=== PATIENT | male | born 1940 | race Caucasian/White ===

== ENCOUNTER 2018-07-22 18:08 | Inpatient (IN) ==
[2018-07-22] MEDS ORDERED: Temazepam 15 MG Capsule PO PRN (20:29)
[2018-07-22] MEDS ORDERED: Acetaminophen 325 MG Tablet PO PRN (20:30)
[2018-07-22] MEDS ORDERED: Aluminum/Magnesium/Simethacone Susp 30 ML UDC PO PRN (20:30)
[2018-07-22] MEDS ORDERED: Acetaminophen/Codeine 300/30 MG Tablet PO PRN (20:30)
[2018-07-22] MEDS ORDERED: Bisacodyl 10 MG Supp RECTAL PRN (20:48)
--- NOTE | 2018-07-22 21:33 | XR ---
EXAM DATE: 07/22/2018 12:00 AM EDT AGE/SEX: 78 years / Male INDICATIONS: Shortness of breath. CLINICAL DATA: This is the patient's initial encounter. Patient reports that signs and symptoms have been present for 1 day and indicates a pain score of 0/10. MEDICAL/SURGICAL HISTORY: Congestive heart failure. Asthma. Hypertension. . Cardiac stents. COMPARISON: POI, XR CHEST PA AND LAT, 06/23/2018. . FINDINGS: Heart size enlarged. Minimal basilar atelectasis and trace pleural effusions, decreased from Septembe r 20. No pneumothorax. Mild basilar atelectasis. CONCLUSION: Cardiomegaly with trace pleural effusions and basilar atelectasis. Remote left clavicle fracture. Electronically signed by: Latrell Buitrago MD 07/22/2018 9:32 PM EDT
[2018-07-22 21:51] LABS: Baso # (Auto) 0.1 th/mm3 (0.0-0.2); Baso % (Auto) 0.8 % (0.0-2.0); Eos # (Auto) 0.2 th/mm3 (0.0-0.4); Eos % (Auto) 2.5 % (0.0-4.0); Hematocrit 41.4 % (39.0-51.0); Hemoglobin 13.4 gm/dL (13.0-17.0); Lymph # (Auto) 2.3 th/mm3 (1.0-4.8); Lymph % (Auto) 23.6 % (9.0-44.0); Mean Corpuscular HGB Conc 32.4 % (32.0-36.0); Mean Corpuscular Hemoglobin 30.1 pg (27.0-34.0); Mean Platelet Volume 9.6 fL (7.0-11.0); Mono # (Auto) 0.6 th/mm3 (0.0-0.9); Mono % (Auto) 5.8 % (0.0-8.0); Neut # (Auto) 6.5 th/mm3 (1.8-7.7); Neut % (Auto) 67.3 % (16.0-70.0); Platelet Count 204 th/mm3 (150-450); Red Blood Count 4.45 mil/mm3 (4.50-5.90); Red Cell Distribution Width 14.5 % (11.6-17.2); White Blood Count 9.7 th/mm3 (4.0-11.0)
[2018-07-22 22:00] LABS: INR 1.5 Ratio; Prothrombin Time 14.9 sec (9.8-11.6)
[2018-07-22 22:14] LABS: Alanine Aminotransferase 53 U/L (12-78); Albumin 4.1 g/dL (3.4-5.0); Anion Gap 8 meq/L (5-15); Aspartate Aminotransferase 28 U/L (15-37); Blood Urea Nitrogen 36 mg/dL (7-18); Calcium 9.1 mg/dL (8.5-10.1); Carbon Dioxide 24.5 meq/L (21.0-32.0); Chloride 108 meq/L (98-107); Glomerular Filtration Rate 48 mL/min (>89); Glucose,Random 94 mg/dL (74-106); Potassium 4.4 meq/L (3.5-5.1); Sodium 140 meq/L (136-145)
[2018-07-22 22:17] LABS: Alkaline Phosphatase 79 U/L (45-117); Total Protein 8.1 g/dL (6.4-8.2)
--- NOTE | 2018-07-22 23:27 | P.HPIM ---
History of Present Illness Service: [facility] Primary Care Physician: German Rosas MD, R3 Chief Complaint: Shortness of breath History of Present Illness: Mr. Maradiaga is a very pleasant 78-year-old male who presents as a direct admission from Dr. Prasad, his market maker, for further evaluation and management of congestive heart failure and atrial flutter. The patient is admitted to the hospitalist service (discussed with Dr. Deal - on-call resident as he is on the family practice resident's service - they are unable to be attending for direct admissions). The patient is seen in his hospital room. He reports that symptoms started June 21 and he was seen by Dr. Rosas his primary care physician. He was referred to Dr. Prasad for new onset of congestive heart failure. The patient reports having medications adjusted by the market maker. He states he started having shortness of breath with ambulation and exertion starting about a week ago. Symptoms are relieved with rest. He denies any chest pain, palpitations, diaphoresis or nausea and/or vomiting. He denies any recent illness and reports that he is usually in good health and actually exercises at least 3 times a week normally but has been instructed not to do so by the market maker. Inpatient Certification: I certify that the inpatient services were ordered in accordance with Medicare regulations governing the order. This includes certification that hospital inpatient services are reasonable and necessary and in the case of services not specified as inpatient-only under 42 CFR 419.22(n), that they are appropriately provided as inpatient services in accordance to with the 2-midnight benchmark under 43 CFR 412.3(e) Estimated Total Length of Stay (Days): 3 Plans for Post Hospital Care: Not yet determined Review of Systems All other systems reviewed negative except as stated in HPI PMFSH - History History Provided By: Patient - Medical History Medical History: Medical History (Last Updated 07/22/18 @ 22:00 by TUSHAR Caceres) Coronary artery disease History of cervical fracture Hypertension - Surgical History Surgical History: Surgical History (Last Updated 07/22/18 @ 22:00 by TUSHAR Caceres) History of heart artery stent History of left knee surgery Status post cervical spinal fusion - Family History Family History: Family History (Last Updated 07/23/18 @ 01:49 by TUSHAR Caceres) Father Heart disease Brother Heart disease Daughter Multiple sclerosis - Social History I have reviewed the patient's Social History: Yes - Tobacco History Second Hand Smoke Exposure: Yes Smoking Status: Never smoker - Alcohol History How Often Do You Have a Drink Containing Alcohol: Monthly or less - Substance Use History Substance History: No History of Abuse - Immunization History Tetanus Immunization: <5 Years Hx Influenza Vaccine This Season: Yes Medications and Allergies Active Medications: Active Medications Acetaminophen (Tylenol) 650 mg PO Q4H PRN PRN Reason: PAIN 1-3 Acetaminophen/Codeine Phosphate (Tylenol W/Cod #3) 2 tab PO Q4H PRN PRN Reason: MODERATE PAIN 4-5 Al Hydrox/Mg Hydrox/Simethicone (Mag-Al Plus Susp Liq) 30 ml PO Q2H PRN PRN Reason: INDIGESTION Al Hydroxide/Mg Hydroxide (Milk Of Magnesia Liq) 30 ml PO Q2H PRN PRN Reason: CONSTIPATION Aspirin (Aspirin Chew) 81 mg PO DAILY TEENA Bisacodyl (Dulcolax Supp) 10 mg RECTAL DAILY PRN PRN Reason: SEVERE CONSITIPATION Furosemide (Lasix Inj) 20 mg IV.PUSH Q12H TEENA Lisinopril (Prinivil) 10 mg PO DAILY TEENA Metoprolol Succinate (Toprol Xl) 50 mg PO DAILY TEENA Pravastatin Sodium (Pravachol) 20 mg PO HS REPLACED BY [facility] Last Admin: 07/22/18 20:41 Dose: Not Given Rivaroxaban (Xarelto) 20 mg PO DAILY@1800 TEENA Temazepam (Restoril) 15 mg PO HS PRN PRN Reason: SLEEP Allergies Allergy/AdvReac Type Severity Reaction Status Date / Time No Known Allergies Allergy Mild Uncoded 07/19/12 13:48 Exam Vital signs: Vital Signs 07/22/18 22:00 Temperature 97.1 F L Pulse Rate 102 H Respiratory Rate 20 Blood Pressure 119/83 Pulse Oximetry 97 Narrative: GENERAL: This is a pleasant elderly male patient, in no apparent distress. SKIN: No rashes or lesions. Cool and dry. HEAD: Atraumatic. Normocephalic. EYES: No scleral icterus. No injection or drainage. ENT: Nose without bleeding, purulent drainage. NECK: Trachea midline. No JVD. CARDIOVASCULAR: Regular rate and rhythm without murmurs, gallops, or rubs. Trace ankle edema noted bilaterally. RESPIRATORY: Left upper lobe with faint scattered crackles, otherwise CTA. Respirations are even and unlabored at rest. GASTROINTESTINAL: Abdomen soft, non-tender, nondistended. No guarding. MUSCULOSKELETAL: Extremities without clubbing, cyanosis, or edema. No calf tenderness. NEUROLOGICAL: Awake and alert. Motor and sensory grossly within normal limits. Normal speech. . Results - Labs CBC & Chem 7: 07/22/18 21:38 07/22/18 21:38 Labs: Short CBC 07/22/18 Range/Units 21:38 WBC 9.7 (4.0-11.0) th/mm3 Hgb 13.4 (13.0-17.0) gm/dL Hct 41.4 (39.0-51.0) % Plt Count 204 (150-450) th/mm3 BMP 07/22/18 21:38 Sodium 140 Potassium 4.4 Chloride 108 H Carbon Dioxide 24.5 BUN 36 H Creatinine 1.41 H Calcium 9.1 Liver Function 07/22/18 Range/Units 21:38 Total Bilirubin 1.1 H (0.2-1.0) mg/dL AST 28 (15-37) U/L ALT 53 (12-78) U/L Alkaline Phosphatase 79 (45-117) U/L Albumin 4.1 (3.4-5.0) g/dL - Imaging Impressions Chest X-Ray 07/22/18 00:00 CONCLUSION: Cardiomegaly with trace pleural effusions and basilar atelectasis. Remote left clavicle fracture. Caprini VTE Risk Assessment Caprini VTE Risk Assessment: Moderate/High Risk (score >= 2) Caprini Risk Assessment Model: Point Value = 1 Point Value = 2 Point Value = 3 Point Value = 5 Age 41-60 Minor surgery BMI > 25 kg/m2 Swollen legs Varicose veins or History of unexplained or recurrent spontaneous Oral contraceptives or hormone replacement Sepsis (< 1 month) Serious lung disease, including pneumonia (< 1 month) Abnormal pulmonary function Acute myocardial infarction Congestive heart failure (< 1 month) History of inflammatory bowel disease Medical patient at bed rest Age 61-74 Arthroscopic surgery Major open surgery (> 45 min) Laparoscopic surgery (> 45 min) Malignancy Confined to bed (> 72 hours) Immobilizing plaster cast Central venous access Age >= 75 History of VTE Family history of VTE Factor V Leiden Prothrombin [id number] Lupus anticoagulant Anticardiolipin antibodies Elevated serum homocysteine Heparin-induced thrombocytopenia Other congenital or acquired thrombophilia Stroke (< 1 month) Elective arthroplasty Hip, pelvis, or leg fracture Acute spinal cord injury (< 1 month) Prophylaxis Regimen: Total Risk Factor Score Risk Level Prophylaxis Regimen 0-1 Low Early ambulation 2 Moderate Order ONE of the following: *Sequential Compression Device (SCD) *Heparin 5000 units SQ BID 3-4 Higher Order ONE of the following medications: *Heparin 5000 units SQ TID *Enoxaparin/Lovenox 40 mg SQ daily (WT < 150 kg, CrCl > 30 mL/min) *Enoxaparin/Lovenox 30 mg SQ daily (WT < 150 kg, CrCl > 10-29 mL/min) *Enoxaparin/Lovenox 30 mg SQ BID (WT < 150 kg, CrCl > 30 mL/min) AND/OR *Sequential Compression Device (SCD) 5 or more Highest Order ONE of the following medications: *Heparin 5000 units SQ TID (Preferred with Epidurals) *Enoxaparin/Lovenox 40 mg SQ daily (WT < 150 kg, CrCl > 30 mL/min) *Enoxaparin/Lovenox 30 mg SQ daily (WT < 150 kg, CrCl > 10-29 mL/min) *Enoxaparin/Lovenox 30 mg SQ BID (WT < 150 kg, CrCl > 30 mL/min) AND *Sequential Compression Device (SCD) Assessment and Plan - Plan Mr. Maradiaga is a very pleasant 78-year-old male who presents as a direct admission from Dr. Prasad, his market maker, for further evaluation and management of congestive heart failure and atrial flutter. The patient is admitted to the hospitalist service. CHF -BUN 1404, CXR with trace bilateral pleural effusions -Lasix 20 mg IV BID -monitor I&Os -Fluid restriction 1000 cc/day -cardiology consulted - Dr. Prasad's assistance is appreciated SOB with exertion - likely secondary to CHF -will check serial troponins and EKGs to r/o acs Atrial flutter 2:1 -continuous cardiac telemetry to monitor rate and rhythm -continue home Xarelto and Metoprolol -treat RVR if sustained > 120 bpm Acute renal insufficiency -BUN 36, creatinine 1.41, and eGFR 48 -most recent labs for comparison were 2006 (kidney function was fine at that time) -avoid nephrotoxins -monitor renal function DVT prophylaxis -Xarelto as above Of note discussed with Dr. Deal - on-call resident as he is on the family practice resident's service (Dr. Rosas) - they are unable to be attending for direct admissions . Discussed Condition With: Patient, RN, and Dr. Armstrong H&P: Quality - VTE Deep Vein Thrombosis/Pulmonary Embolism Present on Admission: No
[2018-07-23 04:14] LABS: Bacteria,Urine Rare /hpf; Bilirubin,Urine Negative (Negative); Clarity,Urine Clear (Clear); Color,Urine Yellow (Yellw/Straw); Glucose,Urine (UA) Negative (Negative); Leukocyte Esterase,Urine Negative (Negative); Mucus,Urine Few /lpf (Occasional); Nitrite,Urine Negative (Negative); Specific Gravity,Urine 1.012 (1.002-1.035); Squamous Epithelial Cell,Urine 2 /hpf (0-5)
[2018-07-23 04:20] LABS: Troponin I 0.03 ng/mL (0.02-0.05)
[2018-07-23] MEDS: Lisinopril 10 MG Tablet PO SCH (08:56)
[2018-07-23] MEDS ORDERED: Influenza (Quadrivalent) Vaccine 0.5 ML Syringe IM ONE (09:00)
[2018-07-23 11:41] LABS: Troponin I 0.03 ng/mL (0.02-0.05)
--- NOTE | 2018-07-23 15:15 | P.PN ---
Subjective Interval history: Patient reports feeling well Good urine outpatient after IV lasix reports BLE edema improved denies SOB at this time Physical Exam Vital signs: Vital Signs 07/22/18 21:35 07/22/18 22:00 07/23/18 00:00 Temperature 97.1 F L 97.2 F L Pulse Rate 110 H 102 H 112 H Respiratory Rate 20 20 Blood Pressure 119/83 125/95 H Pulse Oximetry 97 94 L 07/23/18 04:00 07/23/18 08:00 07/23/18 12:00 Temperature 97.2 F L Pulse Rate 111 H 114 H 113 H Respiratory Rate 20 Blood Pressure 130/69 Pulse Oximetry 92 L Intake & Output 07/22/18 07/23/18 07/23/18 18:59 06:59 18:59 Weight 91 kg Other: Date of Last Bowel Movement 07/22/18 07/22/18 Weight On Admission 91 kg Narrative: GENERAL: This is a well-nourished, well-developed patient, in no apparent distress. CARDIOVASCULAR: irregularly irregular RESPIRATORY: Clear to auscultation. Breath sounds equal bilaterally. GASTROINTESTINAL: Abdomen soft, non-tender, nondistended. Normal active bowel sounds MUSCULOSKELETAL: Extremities without clubbing, cyanosis. trace BLE edema NEURO: Alert & Oriented x4 to person, place, time, situation. Moves all ext x4 . Results - Labs CBC & Chem 7: 07/22/18 21:38 07/22/18 21:38 Laboratory Results - last 24 hr 07/22/18 07/22/18 07/22/18 21:38 21:38 21:38 WBC 9.7 RBC 4.45 L Hgb 13.4 Hct 41.4 MCV 93.0 MCH 30.1 MCHC 32.4 RDW 14.5 Plt Count 204 MPV 9.6 Neut % (Auto) 67.3 Lymph % (Auto) 23.6 [place] % (Auto) 5.8 Eos % (Auto) 2.5 Baso % (Auto) 0.8 Neut # (Auto) 6.5 Lymph # (Auto) 2.3 [place] # (Auto) 0.6 Eos # (Auto) 0.2 Baso # (Auto) 0.1 WBC Differential . Differential Comment Auto diff final PT 14.9 H INR 1.5 Sodium 140 Potassium 4.4 Chloride 108 H Carbon Dioxide 24.5 Anion Gap 8 BUN 36 H Creatinine 1.41 H Estimated GFR 48 L Random Glucose 94 Calcium 9.1 Total Bilirubin 1.1 H AST 28 ALT 53 Alkaline Phosphatase 79 Total Creatine Kinase Troponin I B-Natriuretic Peptide Total Protein 8.1 Albumin 4.1 Urine Color Urine Clarity Urine pH Ur Specific [place] Urine Protein Urine Glucose (UA) Urine Ketones Urine Occult Blood Urine Nitrate Urine Bilirubin Urine Urobilinogen Ur Leukocyte Esterase Urine RBC Urine WBC Ur Squamous Epith Cells Urine Bacteria Urine Mucus Micro UA Comment Ur Microscopic Review Urine Culture Comments 07/22/18 07/23/18 07/23/18 21:38 03:30 03:43 WBC RBC Hgb Hct MCV MCH MCHC RDW Plt Count MPV Neut % (Auto) Lymph % (Auto) [place] % (Auto) Eos % (Auto) Baso % (Auto) Neut # (Auto) Lymph # (Auto) [place] # (Auto) Eos # (Auto) Baso # (Auto) WBC Differential Differential Comment PT INR Sodium Potassium Chloride Carbon Dioxide Anion Gap BUN Creatinine Estimated GFR Random Glucose Calcium Total Bilirubin AST ALT Alkaline Phosphatase Total Creatine Kinase 136 Troponin I 0.03 B-Natriuretic Peptide 1404 H Total Protein Albumin Urine Color Yellow Urine Clarity Clear Urine pH 5.0 Ur Specific [place] 1.012 Urine Protein 30 H Urine Glucose (UA) Negative Urine Ketones Negative Urine Occult Blood Small H Urine Nitrate Negative Urine Bilirubin Negative Urine Urobilinogen Less than 2 Ur Leukocyte Esterase Negative Urine RBC 1 Urine WBC 1 Ur Squamous Epith Cells 2 Urine Bacteria Rare H Urine Mucus Few H Micro UA Comment Culture not ind Ur Microscopic Review Not Reportable Urine Culture Comments Culture not ind 07/23/18 10:00 WBC RBC Hgb Hct MCV MCH MCHC RDW Plt Count MPV Neut % (Auto) Lymph % (Auto) [place] % (Auto) Eos % (Auto) Baso % (Auto) Neut # (Auto) Lymph # (Auto) [place] # (Auto) Eos # (Auto) Baso # (Auto) WBC Differential Differential Comment PT INR Sodium Potassium Chloride Carbon Dioxide Anion Gap BUN Creatinine Estimated GFR Random Glucose Calcium Total Bilirubin AST ALT Alkaline Phosphatase Total Creatine Kinase 155 Troponin I 0.03 B-Natriuretic Peptide Total Protein Albumin Urine Color Urine Clarity Urine pH Ur Specific [place] Urine Protein Urine Glucose (UA) Urine Ketones Urine Occult Blood Urine Nitrate Urine Bilirubin Urine Urobilinogen Ur Leukocyte Esterase Urine RBC Urine WBC Ur Squamous Epith Cells Urine Bacteria Urine Mucus Micro UA Comment Ur Microscopic Review Urine Culture Comments - Imaging Impressions Chest X-Ray 07/22/18 00:00 CONCLUSION: Cardiomegaly with trace pleural effusions and basilar atelectasis. Remote left clavicle fracture. Assessment and Plan - Plan Mr. Maradiaga is a very pleasant 78-year-old male who presents as a direct admission from Dr. Prasad, his swine genetics researcher, for further evaluation and management of congestive heart failure and atrial flutter. The patient is admitted to the hospitalist service. CHF -BUN 1404, CXR with trace bilateral pleural effusions -Continue Lasix 20 mg IV BID -monitor I&Os -Fluid restriction 1000 cc/day -cardiology consulted - assistance is appreciated awaiting further recommendations SOB with exertion - likely secondary to CHF -will check serial 0.03 x 2 Atrial flutter -continuous cardiac telemetry to monitor rate and rhythm -continue home Xarelto and Metoprolol -treat RVR if sustained > 120 bpm Acute renal insufficiency -BUN 36, creatinine 1.41, and eGFR 48 -most recent labs for comparison were 2006 (kidney function was fine at that time) -avoid nephrotoxins -repeat BMP in AM DVT prophylaxis -Xarelto as above Discussed Condition With: Patient, RN, and supervising physician Dr. Nuñez
--- NOTE | 2018-07-23 18:08 | MB ---
cc: Aric Marks MD DATE: 07/23/2018 HISTORY OF PRESENT ILLNESS: Mr. Maradiaga is an 78-year-old white male patient of [facility], with a history of recent onset atrial flutter and congestive heart failure. He was seen 1 week ago and was started on Xarelto, spironolactone, increased dose of metoprolol. He was seen yesterday in Dr. Prasad's office with increased shortness of breath and fatigue. He has not had any chest pain. Has increased lower extremity edema. His echocardiogram yesterday showed ejection fraction of 10% to 15%. Last echocardiogram in 03/2018 showed ejection fraction of 52%. PAST MEDICAL HISTORY: Positive for coronary artery disease, coronary stenting mid circumflex, myocardial infarction, congestive heart failure, new onset atrial flutter, cardiomyopathy, congestive heart failure, moderate aortic stenosis, carotid stenosis, dyslipidemia, hypertension. MEDICATIONS: Include: 1. Xarelto. 2. Baby aspirin. 3. Furosemide. 4. Spironolactone. 5. Lisinopril. 6. Toprol-XL. 7. Pravastatin. 8. Multivitamin. ALLERGIES: NONE. SOCIAL HISTORY: The patient does not smoke. He drinks alcohol occasionally. FAMILY HISTORY: Positive for heart disease in his father and his brother. REVIEW OF SYSTEMS: Otherwise negative. PHYSICAL EXAMINATION: VITAL SIGNS: Blood pressure 130/69, pulse 113 and regular. HEENT: Negative 2+ carotid upstrokes, no bruits. LUNGS: Decreased breath sounds and a few bibasilar crackles. HEART: Regular, tachycardic with a 2/6 systolic murmur. No gallop. ABDOMEN: Soft. EXTREMITIES: With 1+ edema, 1+ distal pulses. NEUROLOGIC: Grossly nonfocal. LABORATORY DATA: EKG was reviewed and showed an atrial flutter/tachycardia with increased ventricular response, left axis, nonspecific ST-T changes. LABORATORY DATA: Hemoglobin 13.4, potassium 4.4, creatinine 1.4. Troponin 0.03 x2. AST and ALT normal. BNP 1404. DIAGNOSES: 1. Acute congestive heart failure. 2. Atrial flutter/tachycardia with rapid ventricular response. 3. Cardiomyopathy with severe left ventricular systolic dysfunction. 4. Renal insufficiency. 5. Coronary artery disease, h/o myocardial infarction and coronary stenting. 6. Aortic stenosis. 7. Hypertension. DISPOSITION: Mr. Maradiaga will continue his current medical program including diuresis. We will closely monitor his renal function. We will increase metoprolol for better rate control. We will continue anticoagulation with Xarelto. 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 Dr. Prasad, his primary inhalation therapy aides teacher, will take over his care on Wednesday. Aric Marks MD OQ/ct , 03:20 PM , 03:30 PM DAVE
[2018-07-23] MEDS: Rivaroxaban 20 MG Tablet PO SCH (18:15)
--- NOTE | 2018-07-23 19:41 | ECG ---
Date Performed: 07/23/2018 Time Performed: 09:16:07 PTAGE: 78 years EKG: ATRIAL TACHYCARDIA WITH RAPID VENTRICULAR RESPONSE WITH VENTRICULAR PREMATURE COMPLEX MARKE D LEFT AXIS DEVIATION INTRAVENTRICULAR CONDUCTION DELAY ABNORMAL ECG PREVIOUS TRACING : 07/23/2018 06.06 Since the previous tracing, no significant change noted DOCTOR: Aric Marks Interpretating Date/Time 07/23/2018 19:40:59
--- NOTE | 2018-07-23 19:53 | ECG ---
Date Performed: 07/23/2018 Time Performed: 06:06:48 PTAGE: 78 years EKG: Atrial tachycardia/flutter Leftward axis Lateral ST-T changes Abnormal ECG Since the PREVIOUS TRACING , no significant change noted DOCTOR: Aric Marks Interpretating Date/Time 07/23/2018 19:51:27
--- NOTE | 2018-07-23 20:01 | ECG ---
Date Performed: 07/23/2018 Time Performed: 03:21:30 PTAGE: 78 years EKG: Atrial flutter/tachycardia with PVC(s) Possible left anterior fascicular block Inferior/lat eral T wave changes are nonspecific Borderline ECG Since the PREVIOUS TRACING , no significant change noted DOCTOR: Aric Marks Interpretating Date/Time 07/23/2018 19:59:44
--- NOTE | 2018-07-23 20:11 | ECG ---
Date Performed: 07/22/2018 Time Performed: 21:11:43 PTAGE: 78 years EKG: ATRIAL FLUTTER/TACHYCARDIA WITH RAPID VENTRICULAR RESPONSE MARKED LEFT AXIS DEVIATION MODER ATE T-WAVE ABNORMALITY ABNORMAL ECG PREVIOUS TRACING : 07/29/2007 06.08 Compared to previous tracing, NSR no longer present DOCTOR: Aric Marks Interpretating Date/Time 07/23/2018 20:10:06
[2018-07-23] MEDS: Metoprolol Tartrate 50 MG Tablet PO SCH (22:18)
[2018-07-24] MEDS: Lisinopril 10 MG Tablet PO SCH (08:02)
[2018-07-24] MEDS: Metoprolol Tartrate 50 MG Tablet PO SCH (08:02)
[2018-07-24 09:00] LABS: Calcium 8.6 mg/dL (8.5-10.1); Carbon Dioxide 23.1 meq/L (21.0-32.0); Potassium 4.6 meq/L (3.5-5.1)
--- NOTE | 2018-07-24 09:28 | P.PNCA ---
Subjective Interval history: Patient denies any chest pain, pressure, palpitations, dizziness or shortness of breath. Patient states that he is slowly starting to feel better. Medications and Allergies Allergies Allergy/AdvReac Type Severity Reaction Status Date / Time No Known Allergies Allergy Mild Uncoded 07/19/12 13:48 Active Medications: Active Medications Acetaminophen (Tylenol) 650 mg PO Q4H PRN PRN Reason: PAIN 1-3 Acetaminophen/Codeine Phosphate (Tylenol W/Cod #3) 2 tab PO Q4H PRN PRN Reason: MODERATE PAIN 4-5 Al Hydrox/Mg Hydrox/Simethicone (Mag-Al Plus Susp Liq) 30 ml PO Q2H PRN PRN Reason: INDIGESTION Al Hydroxide/Mg Hydroxide (Milk Of Magnesia Liq) 30 ml PO Q2H PRN PRN Reason: CONSTIPATION Aspirin (Aspirin Chew) 81 mg PO DAILY [facility] Last Admin: 07/24/18 08:02 Dose: 81 mg Bisacodyl (Dulcolax Supp) 10 mg RECTAL DAILY PRN PRN Reason: SEVERE CONSITIPATION Furosemide (Lasix Inj) 20 mg IV.PUSH Q12H [facility] Last Admin: 07/24/18 06:14 Dose: 20 mg Lisinopril (Prinivil) 10 mg PO DAILY [facility] Last Admin: 07/24/18 08:02 Dose: 10 mg Metoprolol Tartrate (Lopressor) 50 mg PO BID [facility] Last Admin: 07/24/18 08:02 Dose: 50 mg Pravastatin Sodium (Pravachol) 20 mg PO HS [facility] Last Admin: 07/23/18 22:18 Dose: 20 mg Rivaroxaban (Xarelto) 20 mg PO DAILY@1800 [facility] Last Admin: 07/23/18 18:15 Dose: 20 mg Temazepam (Restoril) 15 mg PO HS PRN PRN Reason: SLEEP Physical Exam Vital signs: Vital Signs 07/23/18 12:00 07/23/18 16:00 07/23/18 20:00 Temperature 97.5 F L 97.3 F L 97.2 F L Pulse Rate 114 H 115 H 115 H Respiratory Rate 20 20 20 Blood Pressure 111/75 108/79 94/74 L Pulse Oximetry 97 97 95 07/24/18 00:00 07/24/18 04:00 07/24/18 08:00 Temperature 97.5 F L 97.5 F L Pulse Rate 112 H 108 H 110 H Respiratory Rate 18 18 Blood Pressure 115/93 H 109/77 Pulse Oximetry 99 97 Intake & Output 07/23/18 07/24/18 07/24/18 18:59 06:59 18:59 Intake Total 480 / 480 Output Total 3150 / 3150 2700 / 2700 Balance -2670 / -2670 -2700 / -2700 Weight 90.7 kg Intake: Oral 480 / 480 Output: Urine 3150 / 3150 2700 / 2700 Other: # Voids 1 Date of Last Bowel Movement 07/22/18 07/22/18 # Bowel Movements 1 - Constitutional no acute distress - Routine HEENT Exam Head: Present: normocephalic Eye: Present: PERRL ENT: Present: mucous membranes moist - Routine Neck Exam Present: full ROM - Routine Respiratory Exam Present: crackles Comments: Crackles noted bilaterally lower lobes. - Routine Cardiovascular Exam Present: S1, S2, tachycardia, irregular rhythm - Routine Abdominal Exam Present: normoactive bowel sounds - Routine Extremities Exam Present: edema, full ROM, pulses intact, normal capillary refill. Absent: cyanosis, clubbing - Routine Skin Exam Present: intact - Routine Neurological Exam Present: oriented X3 - Detailed Neurological Exam: Coma Scale Eye Opening: Spontaneous Verbal Response: Oriented Motor Response: Obey commands Kalpesh Coma Scale Total: 15 - Routine Psychiatric Exam Present: normal affect Results 07/22/18 21:38 07/24/18 08:25 Cardiac Enzymes 07/22/18 07/22/18 07/23/18 Range/Units 21:38 21:38 03:43 AST 28 (15-37) U/L Troponin I 0.03 (0.02-0.05) ng/mL B-Natriuretic Peptide 1404 H (0-100) pg/mL 07/23/18 Range/Units 10:00 AST (15-37) U/L Troponin I 0.03 (0.02-0.05) ng/mL B-Natriuretic Peptide (0-100) pg/mL Coagulation 07/22/18 07/22/18 Range/Units 21:38 21:38 PT 14.9 H (9.8-11.6) sec B-Natriuretic Peptide 1404 H (0-100) pg/mL CBC 07/22/18 Range/Units 21:38 WBC 9.7 (4.0-11.0) th/mm3 RBC 4.45 L (4.50-5.90) mil/mm3 Hgb 13.4 (13.0-17.0) gm/dL Hct 41.4 (39.0-51.0) % Plt Count 204 (150-450) th/mm3 Neut # (Auto) 6.5 (1.8-7.7) th/mm3 Lymph # (Auto) 2.3 (1.0-4.8) th/mm3 Gaines # (Auto) 0.6 (0.0-0.9) th/mm3 Eos # (Auto) 0.2 (0.0-0.4) th/mm3 Baso # (Auto) 0.1 (0.0-0.2) th/mm3 Comprehensive Metabolic Panel 07/22/18 07/24/18 Range/Units 21:38 08:25 Sodium 140 138 (136-145) meq/L Potassium 4.4 4.6 (3.5-5.1) meq/L Chloride 108 H 106 (98-107) meq/L Carbon Dioxide 24.5 23.1 (21.0-32.0) meq/L BUN 36 H 41 H (7-18) mg/dL Creatinine 1.41 H 1.60 H (0.60-1.30) mg/dL Calcium 9.1 8.6 (8.5-10.1) mg/dL AST 28 (15-37) U/L ALT 53 (12-78) U/L Alkaline Phosphatase 79 (45-117) U/L Total Protein 8.1 (6.4-8.2) g/dL Albumin 4.1 (3.4-5.0) g/dL Intake and Output 07/23/18 07/24/18 07/24/18 22:59 06:59 14:59 Intake Total 480 / 480 Output Total 2700 / 2700 2700 / 2700 Balance -2220 / -2220 -2700 / -2700 Intake: Oral 480 / 480 Output: Urine 2700 / 2700 2700 / 2700 Other: Date of Last Bowel Movement 07/22/18 # Bowel Movements 1 Weight 90.7 kg - Imaging and Cardiology Imaging: Impressions Chest X-Ray 07/22/18 00:00 CONCLUSION: Cardiomegaly with trace pleural effusions and basilar atelectasis. Remote left clavicle fracture. Assessment and Plan - Assessment (1) Acute congestive heart failure Code(s): I50.9 - Heart failure, unspecified Status: Acute (2) Atrial flutter with rapid ventricular response Code(s): I48.92 - Unspecified atrial flutter Status: Acute (3) Cardiomyopathy Code(s): I42.9 - Cardiomyopathy, unspecified Status: Acute (4) Renal insufficiency Code(s): N28.9 - Disorder of kidney and ureter, unspecified Status: Acute (5) Coronary artery disease Code(s): I25.10 - Atherosclerotic heart disease of [place] coronary artery without angina pectoris Status: Acute (6) Aortic stenosis Code(s): I35.0 - Nonrheumatic aortic (valve) stenosis Status: Acute (7) Hypertension Code(s): I10 - Essential (primary) hypertension Status: Acute - Plan Continue current cardiac treatment plan including diuresis. We will increase metoprolol for better rate control. Patient remains in atrial flutter, we will continue anticoagulation with Xarelto. Patient's current ejection fraction is 10-15%, compared with his ejection fraction in March 2018 which was 52%. 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 Patient will be seen by Dr. Prasad, his primary second crusher, tomorrow. Patient was seen and evaluated by Dr. Marks who participated in care, management and decision. - Attending Attestation Patient seen and examined. I reviewed and agree with the evaluation and plan as presented. Continue therapy for CHF. Continue and titrate tx for rate control. Dr. Prasad will see tomorrow.
[2018-07-24] MEDS ORDERED: Sodium Chloride 0.9% 2 ML Flush PRN IV.FLUSH (09:46)
[2018-07-24] MEDS ORDERED: Lisinopril 5 MG Tablet PO SCH (12:52)
--- NOTE | 2018-07-24 12:53 | P.PNIM ---
Subjective Interval history: Follow up: CHF, SOB with exertion, Atrial flutter and Acute renal insufficiency Patient reports breathing is improving feels better today than yesterday Physical Exam Vital signs: Vital Signs 07/23/18 16:00 07/23/18 20:00 07/24/18 00:00 Temperature 97.3 F L 97.2 F L 97.5 F L Pulse Rate 115 H 115 H 112 H Respiratory Rate 20 20 18 Blood Pressure 108/79 94/74 L 115/93 H Pulse Oximetry 97 95 99 07/24/18 04:00 07/24/18 08:00 07/24/18 12:00 Temperature 97.5 F L 97.2 F L Pulse Rate 108 H 113 H 109 H Respiratory Rate 18 20 Blood Pressure 109/77 92/63 L Pulse Oximetry 97 96 Intake & Output 07/23/18 07/24/18 07/24/18 18:59 06:59 18:59 Intake Total 480 / 480 Output Total 3150 / 3150 2700 / 2700 Balance -2670 / -2670 -2700 / -2700 Weight 90.7 kg Intake: Oral 480 / 480 Output: Urine 3150 / 3150 2700 / 2700 Other: # Voids 1 Date of Last Bowel Movement 07/22/18 07/22/18 # Bowel Movements 1 Narrative: GENERAL: This is a well-nourished, well-developed patient, in no apparent distress. CARDIOVASCULAR: irregularly irregular, tachycardic RESPIRATORY: Clear to auscultation. Breath sounds equal bilaterally. GASTROINTESTINAL: Abdomen soft, non-tender, nondistended. Normal active bowel sounds MUSCULOSKELETAL: Extremities without clubbing, cyanosis. trace BLE edema NEURO: Alert & Oriented x4 to person, place, time, situation. Moves all ext x4 . Results - Labs CBC & Chem 7: 07/22/18 21:38 07/24/18 08:25 Laboratory Results - last 24 hr 07/24/18 08:25 Sodium 138 Potassium 4.6 Chloride 106 Carbon Dioxide 23.1 Anion Gap 9 BUN 41 H Creatinine 1.60 H Estimated GFR 42 L Random Glucose 83 Calcium 8.6 Assessment and Plan - Plan Mr. Maradiaga is a very pleasant 78-year-old male who presents as a direct admission from Dr. Prasad, his tea bag packer, for further evaluation and management of congestive heart failure and atrial flutter. The patient is admitted to the hospitalist service. CHF -BUN 1404, CXR with trace bilateral pleural effusions -monitor I&Os -Fluid restriction 1000 cc/day -cardiology consulted - assistance is appreciated -patient has had some hypotension- decrease lisinopril to 5 mg daily with hold parameters SOB with exertion - likely secondary to CHF -will check serial 0.03 x 2 Atrial flutter -continuous cardiac telemetry to monitor rate and rhythm -continue home Xarelto and Metoprolol - patient seen by covering cardiology. per cardiology: ejection fraction is 10- 15%, compared with his ejection fraction in March 2018 which was 52%. 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 Patient will be seen by Dr. Prasad, his primary tea bag packer, tomorrow. - cardiology also increased metoprolol to 100 mg PO BID Acute renal insufficiency -on admission BUN 36, creatinine 1.41, and eGFR 48 - (07/24_ BUN 41, creatinine 1.60, estimated GFR 42 - stop IV lasix, no lasix tonight - start lasix 20 PO BID tomorrow AM -repeat BMP in AM DVT prophylaxis -Xarelto as above Discussed Condition With: Patient, RN, and supervising physician Dr. Nuñez
[2018-07-24] MEDS: Rivaroxaban 20 MG Tablet PO SCH (17:30)
[2018-07-24] MEDS: Sodium Chloride 0.9% 2 ML Flush BID IV.FLUSH SCH (21:42)
[2018-07-24] MEDS: Metoprolol Tartrate 100 MG Tablet PO SCH (21:50)
[2018-07-25 07:43] LABS: Calcium 8.6 mg/dL (8.5-10.1); Carbon Dioxide 24.7 meq/L (21.0-32.0); Potassium 4.6 meq/L (3.5-5.1)
[2018-07-25] MEDS ORDERED: Furosemide 20 MG Tablet PO SCH (09:00)
[2018-07-25] MEDS: Metoprolol Tartrate 100 MG Tablet PO SCH (09:45)
[2018-07-25] MEDS: Sodium Chloride 0.9% 2 ML Flush BID IV.FLUSH SCH (09:45)
[2018-07-25 09:50] VITALS: RESP 20; O2SAT 100
[2018-07-25] MEDS ORDERED: dilTIAZem CD 120 MG Capsule PO SCH (10:00)
[2018-07-25] MEDS ORDERED: Lisinopril 5 MG Tablet PO SCH (10:15)
--- NOTE | 2018-07-25 13:14 | ECHRPT ---
Indication: CARDIOMYOPATHY CONCLUSIONS The left ventricular systolic function is severely reduced with an estimated ejection fraction less than 10%. Severely dilated left ventricle. Wall thickness is normal. There is global left ventricular dysfunction. The left ventricular systolic function is severely reduced with an estimated ejection fraction less than 10%. Severely dilated left ventricle. Wall thickness is normal. There is global left ventricular dysfunction. Mild mitral valve regurgitation. The pulmonary valve is not well visualized. BP: / HR: Rhythm: Sinus MEASUREMENTS (Male / Female) Normal Values Technical Quality:Good 2D ECHO LV Diastolic Diameter PLAX 7.4 cm 4.2 - 5.9 / 3.9 - 5.3 cm LV Systolic Diameter PLAX 7.2 cm IVS Diastolic Thickness 0.9 cm 0.6 - 1.0 / 0.6 - 0.9 cm LVPW Diastolic Thickness 0.9 cm 0.6 - 1.0 / 0.6 - 0.9 cm LV Relative Wall Thickness 0.2 LVOT Diameter 2.4 cm LA Systolic Diameter LX 4.0 cm 3.0 - 4.0 / 2.7 - 3.8 cm LV Ejection Fraction MOD 4C 0.9 % LV Ejection Fraction 4C AL 0.9 % DOPPLER AV Peak Velocity 119.0 cm/s AV Peak Gradient 5.7 mmHg LVOT Peak Velocity 54.3 cm/s LVOT Peak Gradient 1.2 mmHg AV Area Cont Eq pk 2.1 cm FINDINGS LEFT VENTRICLE The left ventricular systolic function is severely reduced with an estimated ejection fraction less than 10%. Severely dilated left ventricle. Wall thickness is normal. There is global left ventricular dysfunction. RIGHT VENTRICLE Normal right ventricular size and systolic function. LEFT ATRIUM The left atrial size is normal. RIGHT ATRIUM The right atrial size is normal. ATRIAL SEPTUM Normal atrial septal thickness without atrial level shunting by limited color doppler interrogation. AORTA The aortic root and proximal ascending aorta are normal in size on limited imaging. MITRAL VALVE Mild mitral valve regurgitation. AORTIC VALVE Trileaflet aortic valve. No aortic valve stenosis or regurgitation. TRICUSPID VALVE Structurally normal tricuspid valve. No tricuspid valve stenosis or regurgitation. PULMONARY VALVE The pulmonary valve is not well visualized. VESSELS The inferior vena cava is normal in size. PERICARDIUM No pericardial effusion. Ty Melendez MD, FACC (Electronically Signed) Final Date:25 July 2018 13:13
--- NOTE | 2018-07-25 13:59 | P.PNCA ---
Subjective Interval history: This morning, the patient feels good. He wants to go home. He states he was able to do 3 laps around the unit without chest pain, shortness of breath or cardiac. Objectively, the patient continues to have atrial fibrillation with rapid ventricular response. Blood pressure is low this morning. Morning medications are currently being held. Medications and Allergies Active Medications: Active Medications Acetaminophen (Tylenol) 650 mg PO Q4H PRN PRN Reason: PAIN 1-3 Acetaminophen/Codeine Phosphate (Tylenol W/Cod #3) 2 tab PO Q4H PRN PRN Reason: MODERATE PAIN 4-5 Al Hydrox/Mg Hydrox/Simethicone (Mag-Al Plus Susp Liq) 30 ml PO Q2H PRN PRN Reason: INDIGESTION Al Hydroxide/Mg Hydroxide (Milk Of Magnesia Liq) 30 ml PO Q2H PRN PRN Reason: CONSTIPATION Aspirin (Aspirin Chew) 81 mg PO DAILY [facility] Last Admin: 07/25/18 09:44 Dose: 81 mg Bisacodyl (Dulcolax Supp) 10 mg RECTAL DAILY PRN PRN Reason: SEVERE CONSITIPATION Diltiazem HCl (Cardizem Cd 24hr) 120 mg PO DAILY [facility] Last Admin: 07/25/18 13:37 Dose: 120 mg Lisinopril (Prinivil) 2.5 mg PO DAILY [facility] Last Admin: 07/25/18 13:34 Dose: Not Given Metoprolol Tartrate (Lopressor) 100 mg PO BID [facility] Last Admin: 07/25/18 09:45 Dose: Not Given Miscellaneous (Pill Splitter) 1 each OTHER UNSCH PRN PRN Reason: SEE LABEL COMMENTS Pravastatin Sodium (Pravachol) 20 mg PO HS [facility] Last Admin: 07/24/18 21:50 Dose: 20 mg Rivaroxaban (Xarelto) 20 mg PO DAILY@1800 [facility] Last Admin: 07/24/18 17:30 Dose: 20 mg Sodium Chloride (Ns Flush) 2 ml IV.FLUSH BID [facility] Last Admin: 07/25/18 09:45 Dose: 2 ml Sodium Chloride (Ns Flush) 2 ml IV.FLUSH PRN PRN PRN Reason: FLUSH AFTER USING IV ACCESS Temazepam (Restoril) 15 mg PO HS PRN PRN Reason: SLEEP Torsemide (Demadex) 20 mg PO DAILY [facility] Allergies Allergy/AdvReac Type Severity Reaction Status Date / Time No Known Allergies Allergy Mild Uncoded 07/19/12 13:48 Physical Exam Vital signs: Vital Signs 07/24/18 16:00 07/24/18 20:00 07/24/18 21:53 Temperature 97.3 F L 97.3 F L 97.6 F Pulse Rate 107 H 110 H 112 H Respiratory Rate 20 18 18 Blood Pressure 99/74 L 97/69 L 108/80 Pulse Oximetry 94 L 98 97 07/25/18 00:00 07/25/18 04:00 07/25/18 08:00 Temperature 97.2 F L 97.1 F L 97.3 F L Pulse Rate 98 H 102 H 112 H Respiratory Rate 18 18 20 Blood Pressure 103/91 H 96/73 L 88/66 L Pulse Oximetry 99 97 100 07/25/18 12:00 Temperature 97.0 F L Pulse Rate 112 H Respiratory Rate 20 Blood Pressure 115/87 Pulse Oximetry 100 Intake & Output 07/24/18 07/25/18 07/25/18 18:59 06:59 18:59 Intake Total 442 / 442 Output Total 350 / 350 Balance 92 / 92 Weight 90.7 kg Intake: Oral 442 / 442 Output: Urine 350 / 350 Other: # Voids 6 4 Date of Last Bowel Movement 07/22/18 07/24/18 # Bowel Movements 3 - Constitutional no acute distress - Routine HEENT Exam Head: Present: normocephalic Eye: Present: EOMI ENT: Present: mucous membranes moist - Routine Neck Exam Present: supple - Routine Respiratory Exam Present: CTA bilaterally - Routine Cardiovascular Exam Present: tachycardia, irregularly irregular - Routine Abdominal Exam Present: soft - Routine Extremities Exam Comments: No edema - Routine Skin Exam Present: intact - Routine Neurological Exam Present: alert, oriented X3 Results 07/22/18 21:38 07/25/18 06:21 Comprehensive Metabolic Panel 07/24/18 07/25/18 Range/Units 08:25 06:21 Sodium 138 137 (136-145) meq/L Potassium 4.6 4.6 (3.5-5.1) meq/L Chloride 106 105 (98-107) meq/L Carbon Dioxide 23.1 24.7 (21.0-32.0) meq/L BUN 41 H 48 H (7-18) mg/dL Creatinine 1.60 H 1.56 H (0.60-1.30) mg/dL Calcium 8.6 8.6 (8.5-10.1) mg/dL Intake and Output 07/24/18 07/25/18 07/25/18 22:59 06:59 14:59 Intake Total 442 / 442 Output Total 350 / 350 Balance 92 / 92 Intake: Oral 442 / 442 Output: Urine 350 / 350 Other: # Voids 6 4 Date of Last Bowel Movement 07/24/18 # Bowel Movements 3 Weight 90.7 kg - Imaging and Cardiology Echo: report reviewed - EKG Interpretation EKG shows: atrial fibrillation Assessment and Plan - Plan Acute cardiomyopathy. Ejection fraction on limited echo approximately 5%. Ejection fraction March 2018 52% Acute systolic congestive heart failure New onset atrial flutter with rapid ventricular response. Anticoagulated on Xarelto Atherosclerotic heart disease history. No chest pain Aortic stenosis Mitral regurgitation Hypertensive history. Blood pressure currently low Hyperlipidemia Plan: Increased rate control therapy. We will add Cardizem Hold diuresis today. Plan to start torsemide PO tomorrow Patient is not a candidate for Entresto secondary to low blood pressure. Decrease Xarelto 15 mg based on decrease CrCl 48.[address] Prasad about further evaluation and treatment of new cardiomyopathy. Patient was seen and evaluated by Dr. Prasad who completed physical exam and [id number] encounter and participated in evaluation and management.
[2018-07-25] MEDS ORDERED: Metoprolol Tartrate 50 MG Tablet PO SCH (15:30)
--- NOTE | 2018-07-25 15:49 | P.DS ---
Date of admission: 07/22/18 19:41 Primary care physician: German Rosas MD, R3 Attending physician on discharge: Carmen Nuñez Anticipated date of discharge: 07/25/18 Brief History from admission: Mr. Maradiaga is a very pleasant 78-year-old male who presents as a direct admission from Dr. Prasad, his business librarian, for further evaluation and management of congestive heart failure and atrial flutter. The patient is admitted to the hospitalist service (discussed with Dr. Deal - on-call resident as he is on the family practice resident's service - they are unable to be attending for direct admissions). The patient is seen in his hospital room. He reports that symptoms started June 21 and he was seen by Dr. Rosas his primary care physician. He was referred to Dr. Prasad for new onset of congestive heart failure. The patient reports having medications adjusted by the business librarian. He states he started having shortness of breath with ambulation and exertion starting about a week ago. Symptoms are relieved with rest. He denies any chest pain, palpitations, diaphoresis or nausea and/or vomiting. He denies any recent illness and reports that he is usually in good health and actually exercises at least 3 times a week normally but has been instructed not to do so by the business librarian. Patient update on day of discharge: Patient feels well. He is looking forward to going home. He has been walking around the unit multiple times today. He denies any chest pain or shortness of breath. Denies any nausea, vomiting or abdominal pain. DS: Diagnosis - Discharge Diagnosis (1) Cardiac LV ejection fraction 10-20% Status: Acute (2) Acute congestive heart failure Status: Acute (3) Atrial flutter with rapid ventricular response Status: Acute (4) Cardiomyopathy Status: Acute (5) Renal insufficiency Status: Acute (6) Coronary artery disease Status: Acute (7) Aortic stenosis Status: Acute (8) Hypertension Status: Acute DS: Medications - Discharge Medications Prescriptions: aspirin 81 mg PO DAILY #30 tab diltiazem HCl 120 mg PO DAILY@1200 #30 cap metoprolol tartrate 50 mg PO BID #60 tab rivaroxaban [Xarelto] 15 mg PO DAILY@1800 #30 tab torsemide 20 mg PO DAILY #30 tab DS: Summary Hospital Course: Patient was admitted with acute CHF exacerbation. BNP is elevated 1404 and chest x-ray revealed trace bilateral pleural effusions. Patient was noted to have renal insufficiency, likely chronic with no recent lab work in the system since 2006. Patient was started on IV Lasix and fluid restriction. Patient was seen in consultation by cardiology. Patient was noted to have atrial flutter. Patient was treated with metoprolol and Xarelto. Patient improved clinically. Echocardiogram was done which revealed a severely reduced EF of 10 % with a severely dilated left ventricle and global left ventricular dysfunction. Per cardiology, patient elected to go home with a LifeVest. I was contacted by Lesley BUTCHER from Dr. Prasad's office who stated patient had been evaluated by Dr. Prasad and was adamant about being discharged. He had discussed at length with patient possible ramifications of being discharged home. Patient to be fitted for LifeVest at home. She gave me specific instructions regarding home medications to include metoprolol, diltiazem, torsemide, Xarelto and aspirin. Patient's blood pressure was too low to tolerate RUTH inhibitor. Patient to follow-up in 10 days as outpatient at Dr. Prasad's office. - Time Spent with Patient Total time spent providing and/or coordinating discharge services: Greater than 30 minutes - Quality: VTE Deep Vein Thrombosis/Pulmonary Embolism Present on Admission: No Exam Vital signs: Vital Signs 07/24/18 16:00 07/24/18 20:00 07/24/18 21:53 Temperature 97.3 F L 97.3 F L 97.6 F Pulse Rate 107 H 110 H 112 H Respiratory Rate 20 18 18 Blood Pressure 99/74 L 97/69 L 108/80 Pulse Oximetry 94 L 98 97 07/25/18 00:00 07/25/18 04:00 07/25/18 08:00 Temperature 97.2 F L 97.1 F L 97.3 F L Pulse Rate 98 H 102 H 112 H Respiratory Rate 18 18 20 Blood Pressure 103/91 H 96/73 L 88/66 L Pulse Oximetry 99 97 100 07/25/18 12:00 Temperature 97.0 F L Pulse Rate 112 H Respiratory Rate 20 Blood Pressure 115/87 Pulse Oximetry 100 Intake & Output 07/24/18 07/25/18 07/25/18 18:59 06:59 18:59 Intake Total 442 / 442 Output Total 350 / 350 Balance 92 / 92 Weight 90.7 kg Intake: Oral 442 / 442 Output: Urine 350 / 350 Other: # Voids 6 4 Date of Last Bowel Movement 07/22/18 07/24/18 # Bowel Movements 3 Narrative: GENERAL: WDWN elderly male patient, appears younger than stated age. Awake and alert. SKIN: Warm and dry. HEENT: Atraumatic. Normocephalic. Pupils equal and round. No scleral icterus. No injection or drainage. No nasal bleeding or discharge. Mucous membranes pink and moist. NECK: Trachea midline. CARDIOVASCULAR: Regular rate and rhythm. RESPIRATORY: No accessory muscle use. Clear to auscultation. Breath sounds equal bilaterally. GASTROINTESTINAL: Abdomen soft, non-tender, nondistended. +BS. MUSCULOSKELETAL: Extremities without clubbing, cyanosis, or edema. No obvious deformities. NEUROLOGICAL: Awake and alert. No obvious cranial nerve deficits. Motor grossly within normal limits. Able to move all extremities spontaneously. Normal speech. PSYCHIATRIC: Appropriate mood and affect; insight and judgment normal. Results Procedures completed during hospitalization: Clarence Maradiaga Echo 2D Limited 07/25/18 Indication: CARDIOMYOPATHY CONCLUSIONS The left ventricular systolic function is severely reduced with an estimated ejection fraction less than 10%. Severely dilated left ventricle. Wall thickness is normal. There is global left ventricular dysfunction. The left ventricular systolic function is severely reduced with an estimated ejection fraction less than 10%. Severely dilated left ventricle. Wall thickness is normal. There is global left ventricular dysfunction. Mild mitral valve regurgitation. The pulmonary valve is not well visualized. BP: / HR: Rhythm: Sinus MEASUREMENTS (Male / Female) Normal Values Technical Quality:Good 2D ECHO LV Diastolic Diameter PLAX 7.4 cm 4.2 - 5.9 / 3.9 - 5.3 cm LV Systolic Diameter PLAX 7.2 cm IVS Diastolic Thickness 0.9 cm 0.6 - 1.0 / 0.6 - 0.9 cm LVPW Diastolic Thickness 0.9 cm 0.6 - 1.0 / 0.6 - 0.9 cm LV Relative Wall Thickness 0.2 LVOT Diameter 2.4 cm LA Systolic Diameter LX 4.0 cm 3.0 - 4.0 / 2.7 - 3.8 cm LV Ejection Fraction MOD 4C 0.9 % LV Ejection Fraction 4C AL 0.9 % DOPPLER AV Peak Velocity 119.0 cm/s AV Peak Gradient 5.7 mmHg LVOT Peak Velocity 54.3 cm/s LVOT Peak Gradient 1.2 mmHg AV Area Cont Eq pk 2.1 cm FINDINGS LEFT VENTRICLE The left ventricular systolic function is severely reduced with an estimated ejection fraction less than 10%. Severely dilated left ventricle. Wall thickness is normal. There is global left ventricular dysfunction. RIGHT VENTRICLE Normal right ventricular size and systolic function. LEFT ATRIUM The left atrial size is normal. RIGHT ATRIUM The right atrial size is normal. ATRIAL SEPTUM Normal atrial septal thickness without atrial level shunting by limited color doppler interrogation. AORTA The aortic root and proximal ascending aorta are normal in size on limited imaging. MITRAL VALVE Mild mitral valve regurgitation. AORTIC VALVE Trileaflet aortic valve. No aortic valve stenosis or regurgitation. TRICUSPID VALVE Structurally normal tricuspid valve. No tricuspid valve stenosis or regurgitation. PULMONARY VALVE The pulmonary valve is not well visualized. VESSELS The inferior vena cava is normal in size. PERICARDIUM No pericardial effusion. Ty Melendez MD, FAC (Electronically Signed) Final Date:25 July 2018 13:13 Labs on day of discharge: Labs from last 24 hours 07/25/18 07/25/18 06:21 06:21 Sodium 137 Potassium 4.6 Chloride 105 Carbon Dioxide 24.7 Anion Gap 7 BUN 48 H Creatinine 1.56 H Estimated GFR 43 L Random Glucose 102 Calcium 8.6 TSH 3.070 - Impressions ITS Impressions Chest X-Ray 07/22/18 00:00 CONCLUSION: Cardiomegaly with trace pleural effusions and basilar atelectasis. Remote left clavicle fracture. Discharge Plan - Discharge Disposition Patient Disposition: Discharge Home - Discharge Condition Condition: Stable - Discharge Order Discharge Orders: Discharge Order (Routine); Ordered 07/25/18 Ordered By: Evelin Pugh - Discharge Details Anticipated Discharge Date: 07/25/18 - Physicians Team Primary Care Provider: German Rosas Attending Provider: Carmen Nuñez Other Providers: Ken Prasad MD - Rxs /Orders / Referrals /Forms Prescriptions: New aspirin 81 mg Tablet,Chewable 81 mg PO DAILY Qty: 30 RF: 0 diltiazem HCl 120 mg Capsule,Extended Release 24hr 120 mg PO DAILY@1200 Qty: 30 RF: 0 metoprolol tartrate 50 mg Tablet 50 mg PO BID Qty: 60 RF: 0 rivaroxaban [Xarelto] 15 mg Tablet 15 mg PO DAILY@1800 Qty: 30 RF: 0 torsemide 20 mg Tablet 20 mg PO DAILY Qty: 30 RF: 0 Referrals: Ken Prasad MD [Physician] - See Instructions ( Please call the physician's office to book the appointment to be seen within 10 days.) German Rosas MD, R3 [Primary Care Provider] - See Instructions ( Please call the physician's office to book the appointment to be seen within one week.) - Post Discharge Care Plan Care Plan Goals: Discharge Care Plan Goals for Congestive Heart Failure Directions to Meet your Goals: 1. Diet: Limit your salt by doing the following: * Limit canned, dried, packaged, and fast foods. * Don't add salt to your food. * Season foods with herbs instead of salt. * Watch how much liquids you drink. Drinking too much can make heart failure worse. Talk with your health care provider about how much you should drink each day. * Limit the amount of alcohol you drink. It may harm your heart. Women should have no more than 1 drink a day and men should have no more than 2. * When you eat out, request that your meals have no added salt. 2. Activity: * You can benefit from simple activities such as walking or gardening. * Exercising most days of the week can make you feel better. * Don't be discouraged if your progress is slow at first. * Rest as needed. * Stop activity if you develop symptoms such as chest pain, lightheadedness, or significant shortness of breath. * Find activities that you enjoy, such as brisk walking, dancing, swimming, or gardening. These will help you stay active and strengthen your heart. 3. Medicine: * Take your medicines exactly as prescribed. * Learn the names and purpose of each of your medicines. * Keep an accurate medicine list and current dosages with you at all times. Don' t skip doses. * If you miss a dose of your medicine, take it as soon as you remember. * If you miss a dose and it's almost time for your next dose, just wait and take your next dose at the normal time. Don't take a double dose. * If you are unsure, call your doctor's office. Make sure not to mix up your medicines or forget what you've taken the same day. 4. Weight Monitoring: * Weigh yourself every day. A sudden weight gain can mean your heart failure is getting worse. * Weigh yourself at the same time of day and in the same kind of clothes. * Ideally, weigh yourself first thing in the morning after you empty your bladder, but before you eat breakfast. * If your weight goes up by more than 2 pounds in 1 day, 5 pounds in 1 week, or whatever weight gain you were told by your doctor, this is a sign that you are retaining more fluid than you should be. * Clues to weight gain include checking your ankles for swelling, or noticing you are short of breath when you lie down. 5. When to call your doctor: Call your doctor right away if you have any of these signs of worsening heart failure: Sudden weight gain (more than 2 pounds in 1 day or 5 pounds in 1 week, or whatever weight gain you were told to report by your doctor) Trouble breathing not related to being active New or increased swelling of your legs or ankles Swelling or pain in your abdomen Breathing trouble at night (waking up short of breath, needing more pillows to breathe) Frequent coughing that doesn't go away Feeling much more tired than usual 6. Follow up: Do Not miss your follow-up appointment. Keep up with all your appointments and yearly check ups Call 911 right away if you have: Severe shortness of breath, such that you can't catch your breath even while resting Severe chest pain that does not resolve with rest or nitroglycerin [place], foamy mucus with cough and shortness of breath A continuous rapid or irregular heartbeat Passing out or fainting Stroke symptoms such as sudden numbness or weakness on one side of your face , arm, or leg or sudden confusion, trouble speaking or vision changes
[2018-07-25 16:15] VITALS: BP 96/66; PULSE 114
[2018-07-25 16:16] VITALS: TEMP 97.3
[2018-07-25] MEDS ORDERED: Rivaroxaban 15 MG Tablet PO SCH (18:00)
[2018-07-26] MEDS ORDERED: Torsemide 20 MG Tablet PO SCH (09:00)
[2018-07-26] MEDS ORDERED: dilTIAZem CD 120 MG Capsule PO SCH (12:00)
== END 2018-07-25 19:03 | disposition home or self-care (01) ==
LOC: N04 19:41
PROVIDERS: ADMIT Internal Medicine; ATTEND Internal Medicine